=== PATIENT | female | born 1975 | race Hispanic/Latino ===

== ENCOUNTER 2018-05-28 16:27 | Emergency (ER) | payer BC, SELFPAY ==
[2018-05-28] MEDS ORDERED: Famotidine 20 MG TAB ONE (16:59)
[2018-05-28] MEDS ORDERED: diphenhydrAMINE 25 MG CAP ONE (16:59)
[2018-05-28] MEDS ORDERED: predniSONE 20 MG TAB ONE (17:00)
== END 2018-05-28 18:13 | disposition home or self-care (01) ==
LOC: ERS 16:27
DX: T63.461A Toxic effect of venom of wasps, accidental (unintentional), initial encounter (principal)
CPT/HCPCS: 99282; J7506

== ENCOUNTER 2019-12-31 20:16 | Emergency (ER) | payer BC, SELFPAY ==
[2019-12-31] MEDS ORDERED: Ketorolac Tromethamine 30 MG/ML VIAL ONE (22:27)
== END 2019-12-31 22:30 | disposition home or self-care (01) ==
LOC: ERS 20:16
DX: T14.8XXA Other injury of unspecified body region, initial encounter (principal); V43.62XA Car passenger injured in collision with other type car in traffic accident, initial encounter
CPT/HCPCS: 96372; 99284; J1885

== ENCOUNTER 2022-12-30 18:13 | Inpatient (IN) | payer BC, SELFPAY ==
[2022-12-30 18:51] LABS: #Lymphocytes 1.9 thou/uL (1.20-3.40); #Monocytes 0.7 thou/uL (0.11-0.59); #Neutrophils 9.3 thou/uL (1.40-6.50); %Eosinophils 0.2 % (0.0-10.0); %Lymphocytes 15.8 % (21.0-51.0); %Monocytes 5.7 % (0.0-10.0); %Neutrophils 78.2 % (42.0-75.0); BHCG - Serum Negative (NEGATIVE); Hemoglobin 11.1 g/dL (12.0-16.0); Mean Corpuscular Hemoglobin 23.3 pg (27.0-31.0); Mean Corpuscular Volume 72.8 fl (78.0-98.0); Mean Platelet Volume 8.1 fL (7.4-10.4); Platelet Count 264 10x3/uL (130-400); Pregs Control Background? CLEAR/WHITE (CLR/WHITE); Pregs Control Bar Appear? YES (CONTROL BAR); RBC Distribution Width 20.4 % (11.5-14.5); Red Blood Cell (RBC) Count 4.74 mill/uL (4.20-5.40); White Blood Cell (WBC) Count 11.8 10x3/uL (4.8-10.8)
[2022-12-30 18:59] LABS: ALT (SGPT) 14 U/L (8-55); AST (SGOT) 15 U/L (5-34); Albumin 4.1 g/dL (3.5-5.0); Alkaline Phosphatase 212 U/L (40-110); Anion Gap 13 mmol/L (10-20); BUN (Urea Nitrogen) 10 mg/dL (7.0-18.7); Bilirubin, Total 0.6 mg/dL (0.2-1.2); CK (CPK) 107 U/L (29-168); Calc. Creatinine Clearance 0 mL/min (70-130); Calcium 8.8 mg/dL (7.8-10.44); Carbon Dioxide 22 mmol/L (22-29); Chloride 105 mmol/L (98-107); Estimated GFR 108; Globulin 3.9 g/dL (2.4-3.5); Glucose 109 mg/dL (70-105); Lipase 20 U/L (8-78); Potassium 3.5 mmol/L (3.5-5.1); Sodium 136 mmol/L (136-145)
[2022-12-30 19:15] LABS: Anisocytosis SLIGHT = 6-15 cells (100X) (0-5/hpf); Hypochromia SLIGHT = 6-15 cells (100X) (0-5/hpf); MDiff Complete? YES; Microcytosis SLIGHT = 6-15 cells (100X) (0-5/hpf); Platelet Morphology Comment Appears Adequate; Polychromasia SLIGHT = 2-3 cells (100X) (0-2/hpf); Stomatocytes SLIGHT = 2-5 cells (100X) (0-1/hpf)
[2022-12-30] MEDS ORDERED: Fentanyl 100 MCG/2 ML VIAL ONE ×2 (19:15→22:16)
[2022-12-30] MEDS ORDERED: Ketorolac Tromethamine 30 MG/ML VIAL ONE (19:15)
[2022-12-30] MEDS ORDERED: Piperacillin/Tazobactam 3.375 GM VIAL ONE (19:15)
[2022-12-30 20:06] LABS: Bilirubin Negative (Negative); Blood, Urine Negative (Negative); Clarity Clear (Clear); Glucose, Urine (Dipstick) Normal (Negative); Ketone, Urine 80 mg/dL (Negative); Leukocyte Negative Leu/uL (Negative); Nitrite Negative (Negative); Protein, Urine (Dipstick) 20 mg/dL (Neg-Trace); Specific Gravity, Urine 1.032 (1.002-1.036); pH, Urine 5.5 (5.0-9.0)
[2022-12-30 20:14] LABS: Amphetamine Not Detected (NotDetected); Barbiturates Screen Not Detected (NotDetected); Benzodiazepine Screen Not Detected (NotDetected); Cocaine Metabolite Screen Not Detected (NotDetected); Methadone Not Detected (NotDetected); Methamphetamine Not Detected (NotDetected); Opiate Screen Not Detected (NotDetected); Oxycodone Screen Not Detected (NotDetected); Phencyclidine (PCP) Not Detected (NotDetected); THC/Cannabinoid Screen Detected (NotDetected); Tricyclic Screen Not Detected (NotDetected)
[2022-12-30 20:40] LABS: SARS-CoV-2 NAA Rapid Test Not Detected (NotDetected)
[2022-12-30] MEDS ORDERED: Ondansetron PF 4 MG/2 ML Vial IVP PRN (22:12)
[2022-12-30] MEDS ORDERED: Acetaminophen 325 MG TAB PO PRN (22:12)
[2022-12-30] MEDS ORDERED: Senokot S 8.6-50 MG TAB PO PRN (22:12)
[2022-12-30] MEDS ORDERED: Sodium Chloride 0.9% 1,000 ML IV SCH (22:15)
[2022-12-31] MEDS: Morphine 2 MG/ML VIAL SLOW IVP PRN ×5 (00:14→19:36)
[2022-12-31 00:40] VITALS: BMI 50.4
[2022-12-31] MEDS: Piperacillin/Tazobactam 3.375 GM in Sodium Chloride 0.9% 100 ML IVPB SCH ×4 (01:40→23:03)
[2022-12-31 05:40] LABS: #Lymphocytes 0.9 thou/uL (1.20-3.40); #Monocytes 0.9 thou/uL (0.11-0.59); #Neutrophils 12.4 thou/uL (1.40-6.50); %Basophils 0.1 % (0.0-1.0); %Eosinophils 0.2 % (0.0-10.0); %Lymphocytes 6.5 % (21.0-51.0); %Monocytes 6.4 % (0.0-10.0); %Neutrophils 86.7 % (42.0-75.0); Hemoglobin 9.3 g/dL (12.0-16.0); Mean Corpuscular HGB CONC 31.6 g/dL (32.0-36.0); Mean Corpuscular Hemoglobin 23.2 pg (27.0-31.0); Mean Corpuscular Volume 73.2 fl (78.0-98.0); Mean Platelet Volume 11.8 fL (7.4-10.4); Platelet Count 242 10x3/uL (130-400); Red Blood Cell (RBC) Count 4.01 mill/uL (4.20-5.40); White Blood Cell (WBC) Count 14.3 10x3/uL (4.8-10.8)
[2022-12-31 06:01] LABS: Anion Gap 11 mmol/L (10-20); BUN (Urea Nitrogen) 10 mg/dL (7.0-18.7); Calc. Creatinine Clearance 252 mL/min (70-130); Calcium 7.9 mg/dL (7.8-10.44); Carbon Dioxide 20 mmol/L (22-29); Chloride 110 mmol/L (98-107); Estimated GFR 112; Glucose 124 mg/dL (70-105); Potassium 3.4 mmol/L (3.5-5.1); Sodium 138 mmol/L (136-145)
[2022-12-31] MEDS ORDERED: Lactated Ringer's 500 ML IV SCH (07:45)
[2022-12-31] MEDS ORDERED: Potassium Chloride 20 MEQ TAB PO SCH (07:45)
[2022-12-31] MEDS: HYDROcodone/Acetaminophen 5/325 mg Tablet PO PRN ×3 (11:58→22:56)
[2022-12-31] MEDS: Sodium Chloride 0.9% 1,000 ML IV SCH ×2 (15:43→19:36)
[2023-01-01] MEDS: HYDROcodone/Acetaminophen 5/325 mg Tablet PO PRN ×2 (04:29→09:41)
[2023-01-01] MEDS: Sodium Chloride 0.9% 1,000 ML IV SCH ×3 (04:30→21:11)
[2023-01-01 06:23] LABS: #Basophils 0.1 thou/uL (0.0-0.2); #Lymphocytes 0.6 thou/uL (1.20-3.40); #Monocytes 0.8 thou/uL (0.11-0.59); #Neutrophils 10.1 thou/uL (1.40-6.50); %Basophils 0.9 % (0.0-1.0); %Eosinophils 0.3 % (0.0-10.0); %Monocytes 7.1 % (0.0-10.0); %Neutrophils 86.6 % (42.0-75.0); Hemoglobin 9.4 g/dL (12.0-16.0); Mean Corpuscular HGB CONC 30.4 g/dL (32.0-36.0); Mean Corpuscular Hemoglobin 22.8 pg (27.0-31.0); Mean Platelet Volume 12.1 fL (7.4-10.4); Platelet Count 227 10x3/uL (130-400); RBC Distribution Width 20.3 % (11.5-14.5); Red Blood Cell (RBC) Count 4.12 mill/uL (4.20-5.40); White Blood Cell (WBC) Count 11.7 10x3/uL (4.8-10.8)
[2023-01-01 06:39] LABS: Anion Gap 11 mmol/L (10-20); BUN (Urea Nitrogen) 4 mg/dL (7.0-18.7); Calc. Creatinine Clearance 271 mL/min (70-130); Carbon Dioxide 20 mmol/L (22-29); Chloride 108 mmol/L (98-107); Estimated GFR 114; Glucose 100 mg/dL (70-105); Potassium 3.7 mmol/L (3.5-5.1); Sodium 135 mmol/L (136-145)
[2023-01-01] MEDS: Piperacillin/Tazobactam 3.375 GM in Sodium Chloride 0.9% 100 ML IVPB SCH ×3 (07:28→23:13)
[2023-01-01] MEDS ORDERED: Ketorolac Tromethamine 30 MG/ML VIAL IVP SCH (12:45)
[2023-01-01] MEDS ORDERED: Lidocaine 2% Viscous Solution 20 ML, Aluminum & Magnesium Hydroxide 30 ML, Donnatal Eli... SSW SCH (13:45)
[2023-01-01] MEDS ORDERED: Pantoprazole 40 MG VIAL IVP SCH (14:00)
[2023-01-01] MEDS: Ketorolac Tromethamine 30 MG/ML VIAL IVP SCH ×2 (17:52→23:12)
[2023-01-02] MEDS ORDERED: Acetaminophen 325 MG TAB PO SCH (00:30)
[2023-01-02] MEDS ORDERED: Sodium Chloride 0.9% 500 ML IV SCH (00:30)
[2023-01-02] MEDS: Sodium Chloride 0.9% 1,000 ML IV SCH (01:34)
[2023-01-02] MEDS: Ketorolac Tromethamine 30 MG/ML VIAL IVP SCH (05:31)
[2023-01-02 06:11] LABS: #Lymphocytes 0.8 thou/uL (1.20-3.40); #Monocytes 0.7 thou/uL (0.11-0.59); #Neutrophils 6.5 thou/uL (1.40-6.50); %Basophils 0.2 % (0.0-1.0); %Eosinophils 0.6 % (0.0-10.0); %Lymphocytes 9.3 % (21.0-51.0); %Monocytes 9.1 % (0.0-10.0); %Neutrophils 80.8 % (42.0-75.0); Hemoglobin 8.9 g/dL (12.0-16.0); Mean Corpuscular HGB CONC 30.5 g/dL (32.0-36.0); Mean Corpuscular Hemoglobin 22.9 pg (27.0-31.0); Mean Corpuscular Volume 74.8 fl (78.0-98.0); Mean Platelet Volume 11.7 fL (7.4-10.4); Platelet Count 229 10x3/uL (130-400); RBC Distribution Width 20.5 % (11.5-14.5); Red Blood Cell (RBC) Count 3.87 mill/uL (4.20-5.40)
[2023-01-02 06:39] LABS: Anion Gap 10 mmol/L (10-20); BUN (Urea Nitrogen) 5 mg/dL (7.0-18.7); Calc. Creatinine Clearance 261 mL/min (70-130); Calcium 7.7 mg/dL (7.8-10.44); Carbon Dioxide 20 mmol/L (22-29); Chloride 113 mmol/L (98-107); Estimated GFR 113; Glucose 99 mg/dL (70-105); Potassium 3.4 mmol/L (3.5-5.1); Sodium 140 mmol/L (136-145)
[2023-01-02] MEDS: Piperacillin/Tazobactam 3.375 GM in Sodium Chloride 0.9% 100 ML IVPB SCH (07:56)
[2023-01-02] MEDS ORDERED: Potassium Chloride 20 MEQ TAB PO SCH (08:15)
[2023-01-02 08:16] VITALS: BP 101/69; TEMP 98.5
[2023-01-02] MEDS ORDERED: Pantoprazole 40 MG VIAL IVP SCH (09:00)
[2023-01-03] MEDS ORDERED: FLU VACC QS2022-23(6MOS UP)/PF 60 MCG/0.5 ML SYRINGE IM ONE (09:00)
== END 2023-01-02 11:15 | disposition home or self-care (01) | DRG 872 ==
LOC: ERS 18:13 → MSONC 22:11 → OBSVTOIN 12-31 11:35
PROVIDERS: ADMIT Internal Medicine; ATTEND Internal Medicine
DX: A41.9 Sepsis, unspecified organism (principal); K57.32 Diverticulitis of large intestine without perforation or abscess without bleeding; Z68.43 Body mass index [BMI] 50.0-59.9, adult; F12.10 Cannabis abuse, uncomplicated; E66.01 Morbid (severe) obesity due to excess calories; Z79.899 Other long term (current) drug therapy; Z83.3 Family history of diabetes mellitus; Z90.49 Acquired absence of other specified parts of digestive tract; Z98.890 Other specified postprocedural states; Z90.89 Acquired absence of other organs; Z20.822 Contact with and (suspected) exposure to COVID-19
CPT/HCPCS: 36415; 71045; 74177; 80048; 80053; 80306; 81003; 82550; 83605; 83690; 84703; 85025; 86850; 86900; 86901; 87040; 87086; 93005; 96365; 96374; 96375; 96376; C9113; G0378; J1885; J2272; J2543; J3010; J3490; J7030; J7050; J7120